=== PATIENT | female | born 1970 | race Hispanic/Latino ===

== ENCOUNTER → 2017-11-16 | Day surgery (SDC) | payer OTHER ==
[~2017-11-16] MED LIST: ATENOLOL50 MG PO; BUPIVACAINE HCL 0.5% INJ 30 ML VIAL INJ ONE; CEFAZOLIN SOD 2 GM/D5W 50ML 50 ML IV ONE; CYMBALTA30 MG PO; DEXAMETHASONE SOD PHOS INJ 4 MG/ML VIAL ONE; DEXILANT60 MG PO; FENOFIBRATE145 MG PO; FENTANYL CITRATE/PF 100MCG/2 ML INJ ONE; GLYCOPYRROLATE1 MG PO; KLONOPIN0.5 MG PO; LIDOCAINE HCL 2% LOCAL INJ 5 ML SDV VIAL INJ ONE; LINZESS PO; LIPITOR20 MG PO; MIDAZOLAM HCL 2 MG/2 ML VIAL ONE; NEOSTIGMINE 1 MG/ML 10ML VIAL ONE; ONDANSETRON HCL INJ 2 MG/ML VIAL ONE; PREMARIN PO; PROPOFOL IV EMULSION 10 MG/ML 20 ML VIAL ONE; SEVOFLURANE INHAL SOLN 250 ML PEN BTL ONE; TRIAMTERENE-HCTZ1 EA PO; TRILEPTAL300 MG PO; Triamterene/Hctz PO; XIGDUO PO
[2017-11-16 11:45] LABS: BASOPHILS % 0.4 % (0.0-1.0); EOSINOPHILS # (AUTO) 0.1 (0.0-0.4); HEMATOCRIT 35.5 % (34.2-44.1); HEMOGLOBIN 12.4 g/dL (12.0-16.0); LYMPHOCYTES % 53.8 % (18.0-39.1); MEAN CORPUSCULAR HEMOGLOBIN 33.8 pg (28-32); MEAN CORPUSCULAR HGB CONC 34.9 g/dL (31-35); MEAN CORPUSCULAR VOLUME 96.7 fL (81-99); MONOCYTES # (AUTO) 0.5 (0.2-0.8); MONOCYTES % 9.6 % (4.4-11.3); NEUTROPHILS # (AUTO) 1.9 (2.1-6.9); PLATELET COUNT 213 x10e3/uL (140-360); RED BLOOD COUNT 3.67 x10e6/uL (3.6-5.1); RED CELL DISTRIBUTION WIDTH 13.5 % (11.7-14.4)
[2017-11-16 12:05] LABS: ANION GAP 17.1 mmol/L (8-16); BLOOD UREA NITROGEN 18 mg/dL (7-26); BUN/CREATININE RATIO 26 (6-25); CALCIUM 8.6 mg/dL (8.4-10.2); CARBON DIOXIDE 26 mmol/L (22-29); CHLORIDE 98 mmol/L (98-107); CREATININE, SERUM 0.68 mg/dL (0.57-1.11); EST GLOMERULAR FILTRATION RATE > 60 ML/MIN (60-); GLUCOSE 98 mg/dL (74-118); POTASSIUM 4.1 mmol/L (3.5-5.1); SODIUM 137 mmol/L (136-145)
--- NOTE | 2017-11-16 12:11 | Diagnostic Imaging Report ---
EXAMINATION: CHEST 2 VIEWS INDICATION: Pre Foot Surgery COMPARISON: Chest radiograph 06/15/2016. FINDINGS: TUBES and LINES: None. LUNGS: Lungs are well inflated. Lungs are clear. There is no evidence of pneumonia or pulmonary edema. PLEURA: No pleural effusion or pneumothorax. HEART AND MEDIASTINUM: The cardiomediastinal silhouette is unremarkable. BONES AND SOFT TISSUES: No acute osseous lesion. Soft tissues are unremarkable. UPPER ABDOMEN: No free air under the diaphragm. IMPRESSION: No acute thoracic abnormality. Signed by: Dr. Sepideh Flowers MD on 11/16/2017 12:08 PM
[2017-11-16 14:20] VITALS: BP 114/56
--- NOTE | 2017-11-23 11:43 | Operative Report ---
DATE OF PROCEDURE: November 16, 2017. PREOPERATIVE DIAGNOSIS: Cystic lesion plantar aspect of the right foot. POSTOPERATIVE DIAGNOSIS: Cystic lesion plantar aspect of the right foot. TITLE OF THE OPERATION: Excision of ganglion cyst with cystic lesion plantar aspect of the right foot. PROCEDURE IN DETAIL: The patient was taken to the operating room in a mildly sedated state and placed on the operating table in supine position. Following induction of general anesthetic, the right lower extremity was elevated to 60 degrees to exsanguinate before inflating the pneumatic thigh tourniquet to 350 mmHg to create hemostasis. The right lower extremity was placed upon the operating table prior to performing the following procedure: Procedure #1: Excision of ganglion cyst of the right foot. Two converging semielliptical incisions were made circumferentially around the large bullous from papular-type lesion at the distal aspect of the second digit near the first intermetatarsal space plantarly. This is near the capsular area of the second metatarsophalangeal joint. That cyst was then identified, traced down to the joint level and excised. The area was irrigated with copious amounts of sterile saline solution. Deep closure was 3-0 Vicryl, subcutaneous closure 4-0 Vicryl, and skin closure 4-0 nylon. The areas of surgery were blocked with 0.5% Marcaine, Decadron [place]. Release of the pneumatic thigh tourniquet showed a normal hyperemic flush to all digits of the right foot. The patient left the operating room with vital signs stable and in apparent satisfactory condition, having tolerated both the anesthetic and procedure very well. Job#: [id number] KELI
== END | disposition home or self-care (01) ==
LOC: OR 09:58
PROVIDERS: ATTEND Podiatrist Foot Surgery
DX: M67.471 Ganglion, right ankle and foot (principal); M79.671 Pain in right foot; Z01.810 Encounter for preprocedural cardiovascular examination; Z01.812 Encounter for preprocedural laboratory examination; Z01.811 Encounter for preprocedural respiratory examination; F41.9 Anxiety disorder, unspecified; E11.9 Type 2 diabetes mellitus without complications; K21.9 Gastro-esophageal reflux disease without esophagitis; K58.9 Irritable bowel syndrome, unspecified; I10 Essential (primary) hypertension; G47.33 Obstructive sleep apnea (adult) (pediatric)
CPT/HCPCS: 28090; 36415; 71046; 80048; 82948; 85025; 88304; 93005; J1100; J2001; J2250; J2405; J2710

== ENCOUNTER → 2018-05-01 | Day surgery (SDC) | payer OTHER ==
[~2018-05-01] MED LIST changes: -BUPIVACAINE HCL 0.5% INJ 30 ML VIAL INJ ONE; -CEFAZOLIN SOD 2 GM/D5W 50ML 50 ML IV ONE; +IOPAMIDOL 610MG/1ML 300 MG/ML VIAL IV ONE; +KETOROLAC TROMETHAMINE 30 MG/ML VIAL ONE; +LEVAQUIN500 MG PO; +LEVOFLOXACIN 500MG/D5W 100ML 100 ML IV ONE; +METRONIDAZOLE500 MG PO; -NEOSTIGMINE 1 MG/ML 10ML VIAL ONE; -ONDANSETRON HCL INJ 2 MG/ML VIAL ONE; +ONDANSETRON HCL INJ 2MG/ML 2ML 2 MG/ML VIAL ONE
--- OUTSIDE RECORDS SUMMARY | 2018-05-01 08:50 | XMS REPORT | Clinical Summary ---
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 City/[facility] Centerbcowv Phone Number [facility] DEPARTMENT [facility] [place] [address] PATHOLOGY AND GENOMIC MEDICINE * XR Lumbar Spine 1 Vw (05/20/2017 3:40 PM PROTOTYPE MACHINE OPERATOR) Narrative Performed At EXAMINATION: XR LUMBAR SPINE 1 VW [facility] CLINICAL HISTORY: Accidental Fall, Hips Bilateral and Low back COMPARISON:CT abdomen and pelvis 05/18/2017 IMPRESSION: Limited evaluation with single AP view. No fracture or acute abnormality identified. Minimal left convex curvature of the lumbar spine. No significant degenerative change identified. No suspicious osseous lesion identified. Cholecystectomy clips. [id number] Procedure Note Interface, Radiology Results Incoming - 05/20/2017 3:47 PM PROTOTYPE MACHINE OPERATOR EXAMINATION: XR LUMBAR SPINE 1 VW CLINICAL HISTORY: Accidental Fall, Hips Bilateral and Low back COMPARISON: CT abdomen and pelvis 05/18/2017 IMPRESSION: Limited evaluation with single AP view. No fracture or acute abnormality identified. Minimal left convex curvature of the lumbar spine. No significant degenerative change identified. No suspicious osseous lesion identified. Cholecystectomy clips. [facility]-[id number] Performing Organization Address [facility] Centerbc[facility]v Phone Number [facility] [address] [place] [address] * XR Hip 2-3 View Right (05/20/2017 3:39 PM PROTOTYPE MACHINE OPERATOR) Narrative Performed At EXAMINATION:XR HIP 2-3 VIEWS RIGHT [facility] CLINICAL HISTORY:fall COMPARISON:None. TECHNIQUE: 3 views were performed consisting of an AP pelvis, AP and frog's view of the RIGHT hip. FINDINGS: No gross acute fracturing, dislocation, bone destruction, or periosteal reaction is noted. No gross soft tissue swelling is noted. If the patient's symptoms persist or deteriorate, a follow-up radiograph in 10 days time is recommended, if clinically indicated. IMPRESSION: 1. There is no acute fracture or subluxation. [facility]-[id number] Procedure Note Interface, Radiology Results Incoming - 05/20/2017 3:56 PM PROTOTYPE MACHINE OPERATOR EXAMINATION: XR HIP 2-3 VIEWS RIGHT CLINICAL HISTORY: fall COMPARISON: None. TECHNIQUE: 3 views were performed consisting of an AP pelvis, AP and frog's view of the RIGHT hip. FINDINGS: No gross acute fracturing, dislocation, bone destruction, or periosteal reaction is noted. No gross soft tissue swelling is noted. If the patient's symptoms persist or deteriorate, a follow-up radiograph in 10 days time is recommended, if clinically indicated. IMPRESSION: 1. There is no acute fracture or subluxation. [facility]-[id number] Performing Organization Address [facility] Phone Number [facility] [address] [place] [address] * XR Hip 2-3 View Left (05/20/2017 3:39 PM PROTOTYPE MACHINE OPERATOR) Narrative Performed At EXAMINATION:XR HIP 2-3 VIEWS LEFT [facility] CL[facility]ICAL [facility]:fall COMPARISON:None. TECHNIQUE: 3 views were performed consisting of an AP pelvis, AP and frog's view of the LEFT hip. FINDINGS: No gross acute fracturing, dislocation, bone destruction, or periosteal reaction is noted. No gross soft tissue swelling is noted. If the patient's symptoms persist or deteriorate, a follow-up radiograph in 10 days time is recommended, if clinically indicated. IMPRESSION: 1. There is no acute fracture or subluxation. 2. There are no osseous lesions present. [facility]-[id number] Procedure Note Interface, Radiology Results Incoming - 05/20/2017 3:47 PM PROTOTYPE MACHINE OPERATOR EXAMINATION: XR HIP 2-3 VIEWS LEFT CLINICAL HISTORY: fall COMPARISON: None. TECHNIQUE: 3 views were performed consisting of an AP pelvis, AP and frog's view of the LEFT hip. FINDINGS: No gross acute fracturing, dislocation, bone destruction, or periosteal reaction is noted. No gross soft tissue swelling is noted. If the patient's symptoms persist or deteriorate, a follow-up radiograph in 10 days time is recommended, if clinically indicated. IMPRESSION: 1. There is no acute fracture or subluxation. 2. There are no osseous lesions present. [facility]-[id number] Performing Organization Address [facility] Phone Number [facility] [address] [place] [address] * MRI Cholangiogram wo contrast (05/19/2017 8:41 PM PROTOTYPE MACHINE OPERATOR) Narrative Performed At [facility] EXAMINATION:MRI CHOLANGIOGRAM WO CONTRAST CLINICAL HISTORY: h o recurrent pancreatitis COMPARISON:May 18, 2017 CT scan Technique: Multiplanar imaging of the abdomen was performed without intravenous contrast. Additional MRCP sequences were obtained with multiplanar and MIPS imaging performed on the acquisition scanner. FINDINGS: 1.There has been a prior cholecystectomy. Common bile duct measures 12 mm in diameter which is mildly prominent given the cholecystectomy, but no filling defects are identified to suggest common bile duct stone. 2.The pancreatic duct is not dilated and there is no peripancreatic fluid collection or edema. 3.No focal lesions are noted in the liver, spleen, adrenal glands, or kidneys. 4.The abdominal aorta is of normal caliber. IMPRESSION: Prior cholecystectomy with mildly prominent common bile duct; no filling defects identified to suggest common bile duct stone. No peripancreatic fluid or edema. [facility]-[id number] Procedure Note [facility], Radiology Results Incoming - 05/19/2017 8:54 PM PROTOTYPE MACHINE OPERATOR EXAMINATION: MRI CHOLANGIOGRAM WO CONTRAST CLINICAL HISTORY: h o recurrent pancreatitis COMPARISON: May 18, 2017 CT scan Technique: Multiplanar imaging of the abdomen was performed without intravenous contrast. Additional MRCP sequences were obtained with multiplanar and MIPS imaging performed on the acquisition scanner. FINDINGS: 1. There has been a prior cholecystectomy. Common bile duct measures 12 mm in diameter which is mildly prominent given the cholecystectomy, but no filling defects are identified to suggest common bile duct stone. 2. The pancreatic duct is not dilated and there is no peripancreatic fluid collection or edema. 3. No focal lesions are noted in the liver, spleen, adrenal glands, or kidneys. 4. The abdominal aorta is of normal caliber. IMPRESSION: Prior cholecystectomy with mildly prominent common bile duct; no filling defects identified to suggest common bile duct stone. No peripancreatic fluid or edema. [facility]-[id number] Performing Organization Address City/State/Zipcode Phone Number [facility] [address] [place] [address] * CT Abdomen W Wo Contrast (05/18/2017 4:54 PM PROTOTYPE MACHINE OPERATOR) Narrative Performed At EXAMINATION: [employer] CT ABDOMEN W WO CONTRAST CLINICAL HISTORY: Acute pancreatitis COMPARISON: May 17, 2017 TECHNIQUE: Contiguous 5 mm axial slices were performed from the hemidiaphragms to the iliac crests following administration of intravenous iodinated contrast without adverse reaction on a multidetector CT scanner using helical scanning technique followed by 2-D coronal and sagittal reconstructed images. Oral contrast was given for the procedure without adverse reaction. . A pre-intravenous contrast axial slice sequence was obtained from the hemidiaphragms to the iliac crests. The dose length product for the entire procedure is 401 mGy-cm. CT imaging was performed with iterative reconstruction technique and/or automated exposure control to reduce radiation dose. FINDINGS: 1. The lung parenchymal window settings demonstrate linear subsegmental atelectasis in the posterior lung bases.. 2. The attenuation of the liver is decreased relative to that of the spleen consistent with diffuse fatty infiltration.. No pancreatic edema is identified. No peripancreatic inflammatory changes are noted. No focal lesions are seen in the pancreas. No pancreatic duct dilatation is noted. No abnormality of the remaining intra-abdominal solid organs is seen. 3. The opacified stomach is normal. The opacified small bowel is unremarkable. The colon is not opacified. Moderate stool is seen throughout the colon. The appendix is not visualized. No inflammatory changes are noted in the mesenteric fat of the right lower quadrant. A portion of the cecum and appendix are not included in the caudal limits of imaging.. 4. No intra-abdominal fluid collections, mesenteric masses, or retroperitoneal lymphadenopathy is seen. 5. The aorta is normal in caliber with no calcified or noncalcified atheromatous plaque formation.No abnormality of the inferior vena cava is noted.The gallbladder is surgically absent. 6. The sagittal and coronal reconstructed images demonstrate no additional abnormality.. 7. Bone window settings demonstrate no gross acute bony abnormality. IMPRESSION: No radiographic evidence of acute pancreatitis. Hepatic steatosis. Linear subsegmental atelectasis in the posterior lung bases. Constipation. [id number] Procedure Note Interface, Radiology Results Incoming - 05/18/2017 5:22 PM PROTOTYPE MACHINE OPERATOR EXAMINATION: CT ABDOMEN W WO CONTRAST CLINICAL HISTORY: Acute pancreatitis COMPARISON: May 17, 2017 TECHNIQUE: Contiguous 5 mm axial slices were performed from the hemidiaphragms to the iliac crests following administration of intravenous iodinated contrast without adverse reaction on a multidetector CT scanner using helical scanning technique followed by 2-D coronal and sagittal reconstructed images. Oral contrast was given for the procedure without adverse reaction. . A pre-intravenous contrast axial slice sequence was obtained from the hemidiaphragms to the iliac crests. The dose length product for the entire procedure is 401 mGy-cm. CT imaging was performed with iterative reconstruction technique and/or automated exposure control to reduce radiation dose. FINDINGS: 1. The lung parenchymal window settings demonstrate linear subsegmental atelectasis in the posterior lung bases.. 2. The attenuation of the liver is decreased relative to that of the spleen consistent with diffuse fatty infiltration.. No pancreatic edema is identified. No peripancreatic inflammatory changes are noted. No focal lesions are seen in the pancreas. No pancreatic duct dilatation is noted. No abnormality of the remaining intra-abdominal solid organs is seen. 3. The opacified stomach is normal. The opacified small bowel is unremarkable. The colon is not opacified. Moderate stool is seen throughout the colon. The appendix is not visualized. No inflammatory changes are noted in the mesenteric fat of the right lower quadrant. A portion of the cecum and appendix are not included in the caudal limits of imaging.. 4. No intra-abdominal fluid collections, mesenteric masses, or retroperitoneal lymphadenopathy is seen. 5. The aorta is normal in caliber with no calcified or noncalcified atheromatous plaque formation.No abnormality of the inferior vena cava is noted. The gallbladder is surgically absent. 6. The sagittal and coronal reconstructed images demonstrate no additional abnormality.. 7. Bone window settings demonstrate no gross acute bony abnormality. IMPRESSION: No radiographic evidence of acute pancreatitis. Hepatic steatosis. Linear subsegmental atelectasis in the posterior lung bases. Constipation. [facility]-[id number] Performing Organization Address City/State/Zipcode Phone Number [facility] [address] [place] [address] * CT Renal Stone Protocol (05/17/2017 7:13 PM PROTOTYPE MACHINE OPERATOR) Narrative Performed At CT RENAL STONE PROTOCOL [facility] CLINICAL INDICATION:abd pain vomiting TECHNIQUE: Multidetector CT of the abdomen and pelvis was performed without intravenous administration of iodinated contrast with multiplanar reformats. CT scans are performed using radiation dose reduction techniques (iterative reconstruction and/or automated exposure control). Technical factors are evaluated and adjusted to ensure appropriate moderation of exposure. Automated dose management technology is applied to adjust radiation exposure while achieving a diagnostic quality image. COMPARISON:Abdomen/pelvis CT 11/11/2015. FINDINGS: Lung bases:Clear. Liver:Normal. Gallbladder and biliary:The gallbladder is absent. Clips within the gallbladder fossa. Pancreas:Normal. Spleen:Normal. Gastrointestinal:Large and small bowel are normal in caliber. Scattered colonic diverticula without acute inflammatory change. Appendix is visualized and appears normal. Adrenals:Normal. Kidneys and ureters:No mass or hydronephrosis. Urinary bladder:Normal. Lymph nodes:No enlarged lymph nodes in the abdomen or pelvis. Peritoneum:No ascites or free air. Vascular:No significant abnormality. Limited visualization due to lack of intravenous contrast. Reproductive organs:The uterus is not present. Abdominal wall: Midline soft tissue scar, probably due to prior hysterectomy.. Bones:Mild degenerative changes. IMPRESSION: Negative CT for acute pathology within the abdomen and pelvis. [facility]-[id number] Procedure Note Interface, Radiology Results Incoming - 05/17/2017 7:21 PM PROTOTYPE MACHINE OPERATOR CT RENAL STONE PROTOCOL CLINICAL INDICATION: abd pain vomiting TECHNIQUE: Multidetector CT of the abdomen and pelvis was performed without intravenous administration of iodinated contrast with multiplanar reformats. CT scans are performed using radiation dose reduction techniques (iterative reconstruction and/or automated exposure control). Technical factors are evaluated and adjusted to ensure appropriate moderation of exposure. Automated dose management technology is applied to adjust radiation exposure while achieving a diagnostic quality image. COMPARISON: Abdomen/pelvis CT 11/11/2015. FINDINGS: Lung bases: Clear. Liver: Normal. Gallbladder and biliary: The gallbladder is absent. Clips within the gallbladder fossa. Pancreas: Normal. Spleen: Normal. Gastrointestinal: Large and small bowel are normal in caliber. Scattered colonic diverticula without acute inflammatory change. Appendix is visualized and appears normal. Adrenals: Normal. Kidneys and ureters: No mass or hydronephrosis. Urinary bladder: Normal. Lymph nodes: No enlarged lymph nodes in the abdomen or pelvis. Peritoneum: No ascites or free air. Vascular: No significant abnormality. Limited visualization due to lack of intravenous contrast. Reproductive organs: The uterus is not present. Abdominal wall: Midline soft tissue scar, probably due to prior hysterectomy.. Bones: Mild degenerative changes. IMPRESSION: Negative CT for acute pathology within the abdomen and pelvis. [facility]-[id number] Performing Organization Address City/State/Zipcode Phone Number [facility] [address] [place] [address] after 04/30/2017 Insurance Payer Benefit Subscriber ID Type Phone Address Plan / Group TPL TPL-MED-DA xxxxxxxxxx TPL TA AETNA AETNA PPO xxxxxxxxxx PPO OPEN CHOICE Liability Advance Directives Patient has advance care planning documents on file. For more information, deborah pearson contact: Alex Chatterjee [address] [place] [address]
--- OUTSIDE RECORDS SUMMARY | 2018-05-01 08:50 | XMS REPORT ---
Author Author [facility] Address Unknown Phone Unavailable Care Team Providers Care Extruding Press Operator Name Role Phone POPEYE ABAD Unavailable Unavailable Problems This patient has no known problems. Allergies, Adverse Reactions, Alerts This patient has no known allergies or adverse reactions. Medications This patient has no known medications. Results Test Description Test Time Test Comments Text Results Atomic Results Result Comments CHEST 2 VIEWS 2017-11-16 12:04:00 [place] [address] Patient Name: NEYDA BLACKMON MR #: [id number] : 1970 Age/Sex: 46/F Req #: [id number] Adm Physician: Ordered by: POPEYE ABAD DPM Report #: [id number] Location: OR Room/Bed: Procedure: [id number] DX/CHEST 2 VIEWS Exam Date: 11/16/17 Exam Time: 1145 REPORT STATUS: Signed EXAMINATION: CHEST 2 VIEWS INDICATION: Pre Foot Surgery COMPARISON: Chest radiograph 06/15/2016. FINDINGS: TUBES and LINES: None. LUNGS: Lungs are well inflated. Lungs are clear. There is no evidence of pneumonia or pulmonary edema. PLEURA: No pleural effusion or pneumothorax. HEART AND MEDIASTINUM: The cardiomediastinal silhouette is unremarkable. BONES AND SOFT TISSUES: No acute osseous lesion. Soft tissues are unremarkable. UPPER ABDOMEN: No free air under the diaphragm. IMPRESSION: No acute thoracic abnormality. Signed by: Dr. Sary Fish MD on 11/16/2017 12:08 PM Dictated By: SARY FISH MD 07 Transcribed By: GIRMA on 11/16/171207 COPY TO: POPEYE ABAD DPM
[2018-05-01 13:18] VITALS: BP 104/58
--- NOTE | 2018-05-01 13:34 | Operative Report ---
DATE OF PROCEDURE: May 01, 2018 PREOPERATIVE DIAGNOSES 1. Stress incontinence. 2. Urge incontinence. 3. Chronic pelvic pain. POSTOPERATIVE DIAGNOSES 1. Stress incontinence. 2. Urge incontinence. 3. Chronic pelvic pain. 4. Chronic trigonitis. OPERATION: Cystourethroscopy and bilateral retrograde pyelograms. LIVE IN COMPANION: Dr. Richmond ANESTHETIC: General. Ms. Martinez is a 47-year-old female who presented with a chief complaint of stress and urge incontinence, fairly severe. Physical exam showed cystocele with stress incontinence. She also complained of fairly significant pelvic pain. CT scan was unremarkable. This patient was placed on the table in the lithotomy position and was prepped and draped in a sterile manner after satisfactory anesthesia. A #23-Malay cystoscope was used, and cystourethroscopy was performed. It was noted that the urethra was normal. Cystoscopy was then performed using both right-angle and foroblique lens. There were significant vascularity and chronic trigonitis at the level of the trigone with cobblestone appearance and inflammatory bladder neck polyps. The remaining part of the bladder was normal. Right retrograde pyelogram was then performed using a #8 ball-tipped ureteral catheter inserted at the right ureteral orifice, and 5 mL of contrast material was injected. Retrograde performed was normal. Left retrograde pyelogram was performed similarly and was normal. The bladder was drained. The cystoscope was removed, and the patient was taken to the recovery room in satisfactory condition after tolerating the procedure well. Plan for this lady is to be placed on Cipro 250 mg 1 twice a day for 2 weeks, then 1 every night for 6 weeks. Ultracet tablet 1 every 6 to 8 hours p.r.n. She is to return to the office in 2 weeks when at that time plans will be made for a mid-urethral sling. Job#: [id number]
== END | disposition home or self-care (01) ==
LOC: OR 08:46
PROVIDERS: ATTEND Specialist
DX: N39.46 Mixed incontinence (principal); N30.30 Trigonitis without hematuria; N81.10 Cystocele, unspecified; D41.4 Neoplasm of uncertain behavior of bladder; G47.33 Obstructive sleep apnea (adult) (pediatric); I10 Essential (primary) hypertension; E11.9 Type 2 diabetes mellitus without complications
CPT/HCPCS: 36415; 52005; 74420; 82948; 93005; C1758; J1100; J1885; J1956; J2001; J2250; J2405; J2704; Q9967

== ENCOUNTER → 2019-07-29 | Day surgery (SDC) | payer OTHER ==
[2019-07-25 15:42] LABS: ANION GAP 15.6 mmol/L (8-16); BLOOD UREA NITROGEN 20 mg/dL (7-26); BUN/CREATININE RATIO 21 (6-25); CARBON DIOXIDE 28 mmol/L (22-29); CHLORIDE 95 mmol/L (98-107); CREATININE, SERUM 0.97 mg/dL (0.57-1.11); EST GLOMERULAR FILTRATION RATE > 60 ML/MIN (60-); GLUCOSE 233 mg/dL (74-118); POTASSIUM 3.6 mmol/L (3.5-5.1); SODIUM 135 mmol/L (136-145)
--- NOTE | 2019-07-28 12:19 | Pre Op History & Physical ---
DATE OF SURGERY: July 29, 2019. CHIEF COMPLAINT: Bilateral aural fullness, eustachian tube dysfunction, and also Meniere disease. HISTORY OF PRESENT ILLNESS: This 48-year-old female has bilateral aural fullness. She has history of Meniere disease, which required Decadron instillation. The patient had bilateral myringotomy and tubes in May of 2018. The tubes were working well, but the tube has been extruded. After the tube has been extruded, the patient has increasing aural pressure, which usually aggravates by her Meniere disease. She usually required Decadron instillation in the middle ear to improve the condition. The patient also has history of eustachian tube dysfunction, which also improved with the bilateral myringotomy and tubes. Audiogram that was done previously showed the patient has moderate sensorineural hearing loss with speech discrimination of 100% bilaterally. The patient has been treated with Maxzide 75/50 with no improvement of the aural fullness. Also, she has been treated with antibiotics recently for her recent upper respiratory tract infection, again with no improvement of the condition. REVIEW OF SYSTEMS: System review showed no recent cardiovascular, respiratory, or GI problem. PAST MEDICAL HISTORY: The patient has a history of hypertension, history of lupus, and Meniere disease. PAST SURGICAL HISTORY: The patient has x3, cholecystectomy, mini abdominoplasty, liposuction, she had a septoplasty in March 1999 in September 2013, panendoscopy for hoarseness October 31, sinuplasty on July 02, sinuplasty on April 04, panendoscopy for lip lesion on March 04, bilateral myringotomy tubes in February of 2019. ALLERGIES: SHE IS ALLERGIC TO DOXYCYCLINE. MEDICATIONS: She is on Cymbalta and Trileptal. SOCIAL HISTORY: She is a social smoker and a social drinker. FAMILY HISTORY: Noncontributory. PHYSICAL EXAMINATION: VITAL SIGNS: The patient's vital signs were within normal limits. HEENT: Ear exam showed a tube in the canal on both sides with negative pressure in both side of the TM. Nasal exam showed hypertrophy of inferior turbinates. Oropharynx and oral cavity showed no obvious abnormality. NECK: Showed no lymph node or thyroid palpable. CHEST: Showed good air entry bilaterally. CARDIOVASCULAR: Showed S1 and S2. No murmur noted. ASSESSMENT AND PLAN: Ms. Martinez has eustachian tube dysfunction bilaterally and history of Meniere disease. Suggested treatment is bilateral myringotomy and tubes with Decadron instillation and other necessary procedure. Complication of procedure includes but not limited to bleeding, infection, TM perforation, persistent drainage from the ear, hearing loss, persistent recurrence of the ear problem along with TM perforation. Alternatives will be continue observation, bilateral myringotomy and tubes in the office setting. The patient has elected to undergo surgical procedure. MD ASTER Lopez/MODL /[id number]
[~2019-07-29] MED LIST changes: +DEXAMETHASONE PHOS 24 MG/ML 10ML VIAL INJ ONE; +HYDROCODONE/APAP 10MG-325MG TAB ONE; -IOPAMIDOL 610MG/1ML 300 MG/ML VIAL IV ONE; -KETOROLAC TROMETHAMINE 30 MG/ML VIAL ONE; -LEVOFLOXACIN 500MG/D5W 100ML 100 ML IV ONE; +NALOXONE HCL INJ 0.4 MG/ML AMP ONE; +NP THYROID60 MG PO; +OFLOXACIN 0.3% (OTIC SOL) 5 ML BTL ONE
--- OUTSIDE RECORDS SUMMARY | 2019-07-29 08:18 | XMS REPORT | Clinical Summary ---
Author Author [facility] Address Unknown Phone Unavailable Care Team Providers Care Land Leveler Name Role Phone Oswaldo Steven MD PCP [...] (KlonoPIN) 1 Take 1 mg by 0 10/19/ 201 MG tablet mouth. 6 Active cefdinir (OMNICEF) 300 MG Take 300 mg 0 capsule by mouth 2 (two) times a day. Active ibuprofen (ADVIL,MOTRIN) Take 1 tablet 30 tablet 0 600 MG tablet (600 mg 8 total) by mouth every 6 (six) hours as needed for mild pain for up to 30 doses. Active sucralfate (CARAFATE) 1 TAKE 1 TABLET 120 tablet 1 gram tabletIndications: BY MOUTH 4 8 Gastroesophageal reflux TIMES A DAY disease, esophagitis presence not specified Active lactulose (CHRONULAC) 10 TAKE 30 ML 2838 mL 0 1 0/201 gram/15 mL solution (20 GRAMS 9 TOTAL) BY MOUTH DAILY Active LINZESS 145 mcg TAKE 1 90 capsule 1 capsuleIndications: CAPSULE (145 9 Chronic idiopathic MCG TOTAL) BY constipation MOUTH DAILY BEFORE BREAKFAST FOR 90 DAYS. 08/17/2019 Active dexlansoprazole Take 1 30 capsule 3 (Dexilant) 60 mg capsule (60 0 capsuleIndications: mg total) by Chronic idiopathic mouth daily constipation, for 30 days. Gastroesophageal reflux disease, esophagitis presence not specified 01/17/2019 Discontinued (Reorder) dexlansoprazole Take 1 30 capsule 5 (DEXILANT) 60 mg capsule (60 9 capsuleIndications: mg total) by Chronic idiopathic mouth daily constipation, for 30 days. Gastroesophageal reflux disease, esophagitis presence not specified 01/17/2019 Discontinued (Reorder) linaclotide (LINZESS) 145 Take 1 90 capsule 1 mcg capsuleIndications: capsule (145 9 Chronic idiopathic mcg total) by constipation mouth daily before breakfast for 90 days. 12/29/2018 Discontinued (Reorder) lactulose (CHRONULAC) 10 TAKE 30 ML 2838 mL 0 0 07/26/ gram/15 mL solution (20 GRAMS 9 TOTAL) BY MOUTH DAILY 07/18/2019 Discontinued (Reorder) DEXILANT 60 mg TAKE 1 90 capsule 1 capsuleIndications: CAPSULE (60 9 Chronic idiopathic MG TOTAL) BY constipation, MOUTH DAILY Gastroesophageal reflux FOR 30 DAYS. disease, esophagitis presence not specified Active Problems Problem Noted Date Other constipation 05/25/2017 Hypertriglyceridemia 05/25/2017 Acute pancreatitis 05/19/2017 Vomiting without nausea 05/17/2017 Encounters Care Team Description Date Type Specialty Yoan Bobo MD Chronic idiopathic constipation; Gastroesophageal reflux disease, esophagitis presence not specified 07/18/2019 Telephone Gastroenterology 07/18/2019 Travel Josias Henderson MD Cough (Primary Dx); Acute bronchitis, unspecified 05/22/2019 Transcribe Radiology Orders Josias Henderson MD 05/22/2019 Transcribe Radiology Orders Yoan Bobo MD Chronic idiopathic constipation; Gastroesophageal reflux disease, esophagitis presence not specified 01/17/2019 Refill Gastroenterology Yoan Bobo MD 12/29/2018 Refill Gastroenterology Ana Wofl MD Screening breast examination (Primary Dx ) 10/01/2018 Transcribe Access Orders Nya Adan MA 08/14/2018 Telephone Gastroenterology after 07/28/2018 Family History Medical History Relation Name Comments Diabetes Father Hyperlipidemia Father Diabetes Mother Heart attack Mother Hypertension Mother Relation Name Status Comments Father Mother Alive Social History Date Tobacco Use Types Packs/Day Years Used Current Some Day Smoker Cigarettes Smokeless Tobacco: Never Used Comments: smokes one or twice a month Drinks/Week oz/Week Comments Alcohol Use socially Yes Sex Assigned at Date Recorded Not on file Industry Job Start Date Occupation Not on file Not on file Not on file Travel End Travel History Travel Start No recent travel history available. Date Recorded COVID-19 Exposure Response 07/18/2019 12:41 PM CDT In the last month, have you been in contact with No / Unsure someone who was confirmed or suspected to have Coronavirus / COVID-19? Last Filed Vital Signs Reading Time Taken Comments Vital Sign - - Blood Pressure - - Pulse - - Temperature - - Respiratory Rate - - Oxygen Saturation - - Inhaled Oxygen Concentration 59 kg (130 lb) 08/08/2018 5:00 PM CDT Weight 152.4 cm (5') 08/08/2018 5:00 PM CDT Height 25.39 08/08/2018 5:00 PM CDT Body Mass Index Plan of Treatment Care Team Description Date Type Specialty Yoan Bobo MD [address] [place] [id number] [phone] 08/01/2019 Telemedicine Gastroenterology Health Maintenance Due Date Last Done Comments DIABETIC RETINAL EYE EXAM 1971 DIABETIC FOOT EXAM 12/13/1981 URINE MICROALBUMIN 12/13/1981 CERVICAL CANCER SCREENING 12/13/1992 INFLUENZA VACCINE 10/18/2019 Procedures Comments Procedure Name Priority Date/Time Associated Diag nosis XR CHEST 2 VW Routine 05/23/2019 Cough 4:32 PM BELT FIXER Acute bronchitis, unspecified MAMMO BREAST SCREEN Routine 10/02/2018 Screening breast TOMOSYNTHESIS BILATERAL 3:04 PM CDT examination after 07/28/2018 Results * XR Chest 2 Vw (05/23/2019 4:32 PM BELT FIXER) Specimen Narrative Performed At EXAMINATION: XR CHEST 2 VW [facility] CLINICAL HISTORY: R05 Cough, J20.9 Ac brisa bronchitis unspecified, R05 XR CHEST 2 VW images are submitted COMPARISON: NONE FINDINGS: Surgical clips projecting over right up per quadrant. Heart and mediastinum: Unremarkable Lungs: The lungs are well inflated an d clear. There is no evidence of pneumonia or pulmonary edema. Pleura: There is no pleural effusion or pneumothorax. Bones: Mild spondylitic changes of th oracic spine. Otherwise, unremarkable. IMPRESSION: Negative for acute cardiopulmonary dise ase. [facility]-[id number] Procedure Note Hm Interface, Radiology Results Incoming - 05/23/2019 4:37 PM BELT FIXER EXAMINATION: XR CHEST 2 VW CLINICAL HISTORY: R05 Cough, J20.9 Acute bronchitis unspecified, R05 XR CHEST 2 VW images are submitted COMPARISON: NONE FINDINGS: Surgical clips projecting over right upper quadrant. Heart and mediastinum: Unremarkable Lungs: The lungs are well inflated and clear. There is no evidence of pneumonia or pulmonary edema. Pleura: There is no pleural effusion or pneumothorax. Bones: Mild spondylitic changes of thoracic spine. Otherwise, unremarkable. IMPRESSION: Negative for acute cardiopulmonary disease. [facility]-[id number] Performing Organization Address City/State/Zipcode Ph one Number [facility] [address] [place] [address] * Mammo Breast Screen Tomosynthesis Bilateral (10/02/2018 3:04 PM CDT) Specimen Narrative Performed At PROCEDURE: MAMMO BREAST SCREEN TOMOSYNTHESIS BILATERA L [facility] Computer aided detection was utilized f or the interpretation of the digital bilateral screening mammography with to mosynthesis. COMPARISON: There is no prior studies a vailable for comparison. DENSITY: There are scattered areas of f ibroglandular density. There is no evidence of suspicious irregular masses , architectural distortions or grouped calcifications. IMPRESSION: No mammographic evidence of malignancy. RECOMMENDATION: Comparison with physica l exam and annual screening mammography. BI-RADS 1: NEGATIVE This facility is accredited by the [facility] [employer] for Mammography. A negative x-ray report should not dai y biopsy if a dominant or clinically suspicious mass is present. Not all c ancers are identified by x-ray. [id number] Performing Organization Address City/State/Zipcode Ph one Number [facility] [address] [place] [address] after 07/28/2018 Insurance Type Payer Benefit Subscriber ID Effective Phone Address Plan / Dates Group HMO AETNA AETNA xxxxxxxxxx [id number] HMO,POS,EP resent O, MC/EC [id number] Advance Directives For more information, please contact: [phone] Patient Corporate Recruiter Explanation Type Date Recorded Advance Directives, 12/26/2016 10:54 AM Living Will and Medical Power of Capital Equipment Specialist Advance Directives, 03/29/2018 5:07 PM Living Will and Medical Power of Capital Equipment Specialist Advance Directives, 05/17/2017 7:16 PM Living Will and Medical Power of Capital Equipment Specialist
[2019-07-29 12:45] VITALS: BP 107/74
--- NOTE | 2019-07-29 15:10 | Operative Report ---
DATE OF PROCEDURE: 07/29/2019 SURGEON: Josias Henderson MD CHIEF COMPLAINT: Eustachian tube dysfunction bilaterally and Meniere disease. PROCEDURE: Bilateral myringotomy and tubes. POSTOPERATIVE DIAGNOSES: Eustachian tube dysfunction bilaterally and Meniere disease. SURGEON: Josias Henderson MD ANESTHESIA: [facility]. INDICATIONS: This 48-year-old female has history of aural fullness, worse on the left side. The patient has history of eustachian tube dysfunction and also has Meniere disease. The aural fullness improve with bilateral myringotomy tubes and Decadron instillation previously. The patient had a loss of the tube about a year ago that the whole tube got extruded. The patient has a PE tube in both ears, but in the canal, it was decided that removal of the old tube with bilateral myringotomy tubes and Decadron instillation in the middle ear cleft and other necessary procedure will be beneficial for her. The patient was taken to the operating room put under general anesthesia LMA airway created. The right ear was examined. The ear canal was debrided. The PE tube was against the TM in the anterior-inferior quadrant, this was removed. The TM perforation still noted. This was refreshed and an Pitts grommet tube inserted. 1 mL of Decadron 24 mg/mL was injected in the middle ear cleft through the PE tube. The left ear was examined. Ear canal was debrided. PE tube was noted, sitting in the ear canal, this was removed. The myringotomy was done in anterior superior quadrant. No effusion was noted in the middle ear cleft. Pitts grommet tube was inserted. Again, another 1 mL of Decadron 24 mg/mL was injected in the middle ear cleft. The patient tolerated the above procedure well with minimal blood loss. She was able to be transferred to recovery room in stable condition. Josias Henderson MD DKH/MODL /[id number]
== END | disposition home or self-care (01) ==
LOC: OR 08:15
PROVIDERS: ATTEND Otolaryngology Otolaryngology/Facial Plastic Surgery
DX: H69.83 Other specified disorders of Eustachian tube, bilateral (principal); H81.03 Meniere's disease, bilateral; H90.3 Sensorineural hearing loss, bilateral; G47.33 Obstructive sleep apnea (adult) (pediatric); E11.9 Type 2 diabetes mellitus without complications; I10 Essential (primary) hypertension; M32.9 Systemic lupus erythematosus, unspecified; E78.5 Hyperlipidemia, unspecified; F41.9 Anxiety disorder, unspecified; F17.210 Nicotine dependence, cigarettes, uncomplicated; Z01.812 Encounter for preprocedural laboratory examination; Z11.59 Encounter for screening for other viral diseases
CPT/HCPCS: 36415 ×2; 69436; 80048; 82948; 87635; J1100; J2001; J2250; J2310; J2405; J2704; J3010

== ENCOUNTER → 2019-10-28 | Day surgery (SDC) | payer OTHER ==
--- NOTE | 2019-10-27 17:20 | Pre Op History & Physical ---
DATE OF SURGERY: October 28, 2019. CHIEF COMPLAINT: Chronic sinusitis, nasal obstruction. HISTORY OF PRESENT ILLNESS: This 48-year-old female has a history of nasal obstruction postnasal drip discharge from her nose and facial pain. The patient's condition has been ongoing this year for the past 6 months. The patient has been on more than 12 through 16 weeks of antibiotics, topical nasal steroid, systemic steroid, decongestant with no improvement of the condition. The patient had a CT scan of the paranasal sinuses done October of this month of this year, which showed that she had chronic sinusitis involvement of the ethmoid sinuses and sphenoid sinus on the left side. Ethmoid sinuses involvement on the right and left maxillary sinus disease and also chronic sinus involvement of the right maxillary sinus. The patient also was noted to have a deviated nasal septum. REVIEW OF SYSTEMS: System review showed no recent cardiovascular, respiratory, or GI problem. PAST MEDICAL HISTORY: The patient has a history of hypertension and history of lupus. She has a history of Meniere disease. PAST SURGICAL HISTORY: The patient has a previous x3, cholecystectomy, abdominoplasty, liposuction, endoscopic sinus surgery and septoplasty in August of 1999, a panendoscopy and microlaryngoscopy in October of 2014, excision of lip lesion in February of 2017, sinuplasty in October of 2017 and bilateral myringotomy tubes of May 2018. ALLERGIES: SHE IS ALLERGIC TO DOXYCYCLINE. MEDICATION: She is on Cymbalta and Trileptal. SOCIAL HISTORY: She is a social smoker and a social drinker. FAMILY HISTORY: Noncontributory. PHYSICAL EXAMINATION: VITAL SIGNS: The patient's vital signs were within normal limits. HEENT: Ear exam showed a tube in place with normal ear canal and TM on both sides. Nasal exam showed hypertrophy of the turbinates. Oropharynx and oral cavity showed no obvious abnormality. NECK: Showed no lymph node or thyroid palpable. CHEST: Showed good air entry bilaterally. CARDIOVASCULAR: Showed S1, S2. No murmur noted. ASSESSMENT AND PLAN: Mrs. Martinez has chronic sinusitis, nasal obstruction, which has been resistant to multiple months of conservative therapy. The suggested treatment is endoscopic sinus surgery, septoplasty, resection of inferior turbinate and other necessary procedure. Complication of procedure includes but not limited to bleeding, infection, CSF leak, blindness, double vision, meningitis, septal perforation, septal hematoma, persistent nasal obstruction, persistent nasal crusting, nasal deformity, persistent recurrence of the sinus problem and persistent recurrence of headaches. Alternatives will be continue observation, continue antibiotic therapy, topical nasal steroid therapy, systemic steroid therapy, decongestant. I have advised the patient that her headaches may not be gone after her sinus surgery. I have also advised that she see Dr. Flores for headaches. The patient has elected to undergo surgical procedure. MD IVONE Lopez/MODL /[id number]
[~2019-10-28] MED LIST changes: +ACETAMINOPHEN 1000 MG/100 ML 100 ML IV ONE; -DEXAMETHASONE PHOS 24 MG/ML 10ML VIAL INJ ONE; +EPINEPHRINE HCL 1:1000 1ML 1 MG/ML AMP ONE; -FENTANYL CITRATE/PF 100MCG/2 ML INJ ONE; +GLYCOPYRROLATE INJ 0.2 MG/ML VIAL ONE; -HYDROCODONE/APAP 10MG-325MG TAB ONE; +LIDOCAINE 1% W/EPINEPHRINE 20 ML VIAL ONE; -MIDAZOLAM HCL 2 MG/2 ML VIAL ONE; -NALOXONE HCL INJ 0.4 MG/ML AMP ONE; +NEOSTIGMINE 1 MG/ML 10ML VIAL ONE; -OFLOXACIN 0.3% (OTIC SOL) 5 ML BTL ONE; +ROCURONIUM BROMIDE 10 MG/ML 5ML VIAL IV ONE
[2019-10-28 08:47] LABS: ANION GAP 16.7 mmol/L (8-16); BLOOD UREA NITROGEN 11 mg/dL (7-26); BUN/CREATININE RATIO 17 (6-25); CALCIUM 9.3 mg/dL (8.4-10.2); CARBON DIOXIDE 25 mmol/L (22-29); CHLORIDE 98 mmol/L (98-107); CREATININE, SERUM 0.66 mg/dL (0.57-1.11); EST GLOMERULAR FILTRATION RATE > 60 ML/MIN (60-); GLUCOSE 139 mg/dL (74-118); POTASSIUM 3.7 mmol/L (3.5-5.1); SODIUM 136 mmol/L (136-145)
[2019-10-28 11:47] VITALS: BP 129/86
--- NOTE | 2019-10-30 18:36 | Operative Report ---
DATE OF PROCEDURE: 10/28/2019 SURGEON: Josias Henderson MD CHIEF COMPLAINT: Chronic sinusitis, nasal obstruction. POSTOPERATIVE DIAGNOSES: Chronic sinusitis, nasal obstruction. OPERATIVE PROCEDURES: Bilateral anterior and posterior ethmoidectomy, bilateral left sphenoidectomy, and septoplasty. ANESTHESIA: [facility]. INDICATIONS: This 48-year-old female has history of nasal obstruction, occipital pain, postnasal drip, and discharge from her nose. The patient also complained of frontal headaches. Her condition has been treated with multiple antibiotics, topical nasal steroid, decongestant more than 12 weeks along with systemic steroid and topical nasal spray with no improvement of the condition. On examination, she was noted to have hypertrophy of inferior turbinate and deviated nasal septum to the left side about 30%. A CT scan of paranasal sinuses done before surgery, showed the patient has involvement of the ethmoid sinuses on both sides anterior and posteriorly, worse on the left and sphenoid sinus involvement on the left side and confirmed deviated nasal septum to the left side. It was decided endoscopic sinus surgery, septoplasty, and other necessary procedure will be beneficial for her. DESCRIPTION OF PROCEDURE: The patient was taken to the operating room, put under general anesthesia, endotracheally intubated. The nose was injected with 1% Xylocaine with 1:100,000 epinephrine for hemostasis. Epinephrine-soaked pledget was inserted in nose and subsequently removed. The left paranasal sinuses were approached first. Middle turbinate was medialized. Inflamed tissue was noted and the anterior ethmoid sinuses, this was dissected using a microshaver, the oleg lamella was gone through, a large amount of inflamed tissue was noted in the posterior ethmoid sinuses, this was dissected out systematically. Care was taken during dissection to ascertain, although was not entered. The sphenoid sinus was entered through the posterior ethmoid sinuses. About 10 mL of thick mucopus was suctioned out. Inflamed tissue and sphenoid sinus were dissected using a microshaver. The right paranasal sinuses were approached. The middle turbinate was medialized on the right side. The patient had previous sinus procedure before, inflamed tissue was noted in the ethmoid sinuses anteriorly, this was dissected using a microshaver. The oleg lamella was gone through the inflamed tissue and the posterior ethmoid sinus was dissected systematically using the microshaver. Care was taken during dissection to ascertain, although was not entered. The septoplasty was performed. A hemitransfixion incision was done on the left side. Mucoperichondrial flap was elevated on the left. The perpendicular plate of the ethmoid was partially resected before this was removed along with the vomer. The quadrangular cartilage of the being freed from posterior and inferior constraint was able to swing back in the midline. The hemitransfixion incision was closed using 4-0 chromic suture in interrupted fashion. Septal whipstitch was done using 4-0 plain gut suture to reapproximate the mucoperichondrial flap and prevent septal hematoma formation. NasoPore was inserted in sinus cavities on either side; this was done to prevent synechiae formation and for hemostasis. It should be noted that some bleeding area was noted coming from the inferior portion of the ethmoid sinuses on the right side. The bleeding area was controlled using the suction cautery. Care was taken during the this maneuver to stay away from the medial wall of the orbit. The patient tolerated the above procedure well with estimated blood loss about 20 mL. She was given 20 mg of Decadron intraoperatively. The patient was able to be transferred to recovery room in stable condition. MD IVONE Lopez/LINDA /[id number]
== END | disposition home or self-care (01) ==
LOC: OR 07:48
PROVIDERS: ATTEND Otolaryngology Otolaryngology/Facial Plastic Surgery
DX: J32.2 Chronic ethmoidal sinusitis (principal); J32.3 Chronic sphenoidal sinusitis; J34.2 Deviated nasal septum; J34.89 Other specified disorders of nose and nasal sinuses; J34.3 Hypertrophy of nasal turbinates; G47.33 Obstructive sleep apnea (adult) (pediatric); E03.9 Hypothyroidism, unspecified; E11.9 Type 2 diabetes mellitus without complications; K21.9 Gastro-esophageal reflux disease without esophagitis; I10 Essential (primary) hypertension; E78.5 Hyperlipidemia, unspecified; F32.9 Major depressive disorder, single episode, unspecified; F41.9 Anxiety disorder, unspecified; Z72.0 Tobacco use
CPT/HCPCS: 30520; 31259; 36415; 80048; 82948; 87071; 87075; 87205; 88305; 93005; J0131; J0171; J1100; J2001; J2405; J2704; J2710